=== PATIENT | male | born 2000 | race Caucasian/White ===

== ENCOUNTER → 2021-09-07 | Outpatient (CLI) | payer OTHER | LOC: M RAD 16:08 | PROVIDERS: ATTEND Physician Assistant Medical | DX: G44.52 New daily persistent headache (NDPH) (principal); H81.10 Benign paroxysmal vertigo, unspecified ear ==

== ENCOUNTER 2022-03-08 12:43 | Emergency (ER) | payer OTHER ==
[~2022-03-08] VITALS: Ht 182.9 cm; Wt 88.6 kg
[2022-03-08] MEDS ORDERED: IBUP200C28 PO (13:19)
[2022-03-08] MEDS ORDERED: PROP20TA72 PO (13:19)
[2022-03-08 14:18] LABS: BASO % 0.3 % (0.0-1.0); EOS # 0.1 10^3/uL (0.0-0.5); EOS % 1.8 % (0.0-3.0); HEMATOCRIT 47.3 % (42.0-52.0); HEMOGLOBIN 15.7 g/dl (13.5-17.5); LYMPH # 2.4 10^3/uL (1.5-5.0); LYMPH % 31.1 % (24.0-44.0); MEAN CORPUSCULAR HEMOGLOBIN 28.4 pg (27.0-33.0); MEAN CORPUSCULAR HGB CONC 33.2 g/dl (32.0-36.5); MEAN CORPUSCULAR VOLUME 85.7 fl (80.0-96.0); MONO # 0.4 10^3/uL (0.0-0.8); MONO % 5.6 % (2.0-8.0); NEUTROPHILS # 4.8 10^3/uL (1.5-8.5); NEUTROPHILS % 60.9 % (36.0-66.0); PLATELET COUNT, AUTOMATED 241 10^3/uL (150-450); RED BLOOD COUNT 5.52 10^6/uL (4.30-6.10); WHITE BLOOD COUNT 7.8 10^3/uL (4.0-10.0)
[2022-03-08 14:46] LABS: CK-MB VALUE MASS < 1.0 NG/ML (<3.6)
[2022-03-08 14:47] LABS: BLOOD UREA NITROGEN 11 MG/DL (9-23); CALCIUM LEVEL 9.1 MG/DL (8.5-10.1); CARBON DIOXIDE LEVEL 27 MMOL/L (20-31); CHLORIDE LEVEL 108 MMOL/L (98-107); CPK CREATINE PHOSPHOKINASE 80 U/L (46-171); CREATININE FOR GFR 1.03 MG/DL (0.70-1.30); GLOMERULAR FILTRATION RATE > 60.0 (>60); GLUCOSE, FASTING 91 MG/DL (60-100); MB/CK RELATIVE INDEX 1.25 (< OR =4); POTASSIUM SERUM 5.1 MMOL/L (3.5-5.1); SODIUM LEVEL 141 MMOL/L (136-145)
[2022-03-08 14:58] LABS: INR 0.98; PARTIAL THROMBOPLASTIN TIME 24.8 SECONDS (24.8-34.2); PROTHROMBIN TIME 13.2 SECONDS (12.5-14.5)
[2022-03-08 15:10] LABS: D-DIMER QUANT < 270 ng/ml (<500)
[2022-03-08 17:35] VITALS: BP 156/95
[2022-03-08] MEDS ORDERED: GI COCKTAIL 50ML BTL(HYOSCYAMINE/MAALOX/LIDOCAINE VISCOUS)(1:3:1) PO ONE (18:15)
[2022-03-08 18:32] LABS: LIPASE 36 U/L (12-53)
[2022-03-08 18:34] LABS: BILIRUBIN,DIRECT 0.3 MG/DL (<0.4)
[2022-03-08 18:35] LABS: ALBUMIN 4.3 G/DL (3.2-5.2); ALKALINE PHOSPHATASE 59 U/L (46-116); ALT/SGPT 20 U/L (7.0-40); AST/SGOT 17 U/L (<34); BILIRUBIN,TOTAL 1.1 MG/DL (0.3-1.2); TOTAL PROTEIN 7.5 G/DL (5.7-8.2)
[2022-03-08] MEDS ORDERED: OMEP10CASR PO (19:16)
[2022-03-08] MEDS ORDERED: SUCR1SS PO (19:16)
== END 2022-03-08 19:44 | disposition home or self-care (01) ==
LOC: M ED 12:43
DX: R07.9 Chest pain, unspecified (principal); R10.13 Epigastric pain; I49.8 Other specified cardiac arrhythmias; Z79.810 Long term (current) use of selective estrogen receptor modulators (SERMs); Z79.899 Other long term (current) drug therapy

== ENCOUNTER → 2022-08-15 | Outpatient (REF) ==
[~2022-08-15] MED LIST: IBUP200C28 PO; OMEP10CASR PO; PROP20TA72 PO; SUCR1SS PO
== END ==
LOC: M RAD 08:25
PROVIDERS: ATTEND Internal Medicine
DX: R06.02 Shortness of breath (principal)